=== PATIENT | female | born 1925 | race Caucasian/White ===

== ENCOUNTER 2017-06-27 10:33 | Emergency (ER) | payer OTHER ==
[~2017-06-27] VITALS: Ht 162.6 cm; Wt 46.3 kg
[~2017-06-27 10:33] MED LIST: ACET120S PR; ACET325 PO; ALBIPROI INH; ALBU.083IS IH; ALBU90OI INH; ALBU90OI6 INH; ALBU90OI61 INH; ALBUIS INH; ALEN70 PO; AMLO5 PO; ANTI-INFLAMMITORY; ASTHMACORT; AZIT250 PO; BENADRYL25 MG PO; BISA10S PR; BLOOD THINNER; BUDE.5 INH; BUDE200IP IH; CLON.5 PO; CLOP75 PO; DIPH50 PO; ERGO50000 PO; FLUT.05NI; FORM12IH IH; FURO20 PO; HYDCHL25 PO; HYDCHL50 PO; LEVSOD100 PO; LEVSOD25; LEVSOD75 PO; LEVSOD88 PO; LISI20 PO; LISI5 PO; LOSA50 PO; MOM PO; PERFOROMIST; POTA10T PO; POTCHL20ER PO; PRED20 PO; Perforomis20 MCG/2 M IH; REFLUX MED; RESTLESS LEG MED; SODPHOSO PR; THEO300ERA PO; THEO300ERC PO; VERA180ER PO; VITAMIN D-32000 UNIT PO; [UNRECOGNIZED DRUG - CODE]
[2017-06-27] MEDS ORDERED: AMLO10 PO (11:00)
[2017-06-27] MEDS ORDERED: Perforomis20 MCG/2 M INH (11:01)
[2017-10-25] MEDS ORDERED: ALBU2.5V5 NEB (17:34)
[2017-11-01] MEDS ORDERED: ALBU2.5V5 INH (13:17)
[2017-11-01] MEDS ORDERED: ACET500 PO (13:20)
[2017-11-01] MEDS ORDERED: GUAI600T33 PO (13:21)
[2017-11-01] MEDS ORDERED: LEVFLO250 PO (13:22)
[2017-11-01] MEDS ORDERED: Benadryl Itch28.3 G1 TOP (13:24)
[2017-11-01] MEDS ORDERED: ACETYLCYST200 MG/1 M INH (13:25)
[2017-11-01] MEDS ORDERED: Omeprazole20 M1 PO (13:25)
[2017-11-01] MEDS ORDERED: FURO20 PO (13:26)
[2017-11-01] MEDS ORDERED: PRED10 PO (13:27)
[2017-11-01] MEDS ORDERED: ALBU3IS INH (13:28)
[2018-03-08] MEDS ORDERED: Perforomis20 MCG/2 M INH (13:38)
[2018-03-08] MEDS ORDERED: ALBU90OI61 INH (13:40)
[2018-03-09] MEDS ORDERED: ACET325 PO (14:42)
[2018-03-09] MEDS ORDERED: AZIT250 (14:44)
[2018-03-09] MEDS ORDERED: PRED20 (14:45)
[2018-03-11] MEDS ORDERED: Vitamin D2000 UNIT PO (07:12)
[2018-03-11] MEDS ORDERED: Norco 5-325 Ta1 EACH PO (08:59)
[2018-03-19] MEDS ORDERED: Perforomis20 MCG/2 M INH (19:05)
[2018-05-05] MEDS ORDERED: Mupirocin22 GM TOP (11:20)
[2018-05-05] MEDS ORDERED: Hydrocodone-Ap1 EA23 PO (11:21)
[2018-05-05] MEDS ORDERED: CLON.5 PO (11:22)
== END 2017-06-27 11:50 | disposition home or self-care (01) ==
LOC: ER 10:33
DX: S80.02XA Contusion of left knee, initial encounter (principal); S00.81XA Abrasion of other part of head, initial encounter; S50.312A Abrasion of left elbow, initial encounter; I10 Essential (primary) hypertension; J45.909 Unspecified asthma, uncomplicated; F17.200 Nicotine dependence, unspecified, uncomplicated; Z90.710 Acquired absence of both cervix and uterus; Z90.89 Acquired absence of other organs; W19.XXXA Unspecified fall, initial encounter
CPT/HCPCS: 93005; 93010; 99283